=== PATIENT | male | born 1960 | race Caucasian/White ===

== ENCOUNTER 2023-10-29 20:39 | Inpatient (IN) | payer MEDICARE, OTHER, SELFPAY ==
[2023-10-29] VITALS (13 sets, daily range): BP systolic 127–188; BP diastolic 82–109; BMI 35.3
[2023-10-29 17:24] LABS: % Basophils 0.9 % (0-2); % Eosinophils 1.6 % (0-6); % Immature Granulocytes 0.4 % (0-0.5); % Lymphocytes 19.2 % (20.5-51.1); % Monocytes 8.8 % (1.7-9.3); % Neutrophils 69.1 % (42.2-75.2); Absolute Basophils 0.1 10^3/uL (0-0.2); Absolute Eosinophils 0.2 10^3/uL (0-0.7); Absolute Monocytes 0.9 10^3/uL (0.1-0.6); Absolute Neutrophils 7.3 10^3/uL (1.4-6.5); Hematocrit 44.1 % (39.0-52.0); Hemoglobin 15.3 g/dL (13.0-18.0); Mean Corp Hgb Conc. 34.7 g/dL (33.0-37.0); Mean Corpuscular Volume 86.5 fL (80.0-94.0); Mean Platelet Volume 10.3 fL (7.4-10.4); Nucleated Red Blood Cells % 0 % (-); Platelet Count 237 10^3/uL (130-400); Red Cell Dist. Width 13.1 % (11.5-14.5); White Blood Cell Count 10.5 10^3/uL (4.8-10.8)
[2023-10-29 17:38] LABS: ALT (SGPT) 33 U/L (0-50); AST (SGOT) 33 U/L (17-59); Alkaline Phosphatase 71 U/L (38-126); Blood Urea Nitrogen 22 mg/dl (9-20); Calcium 9.6 mg/dl (8.4-10.2); Carbon Dioxide 27 mmol/L (22-30); Chloride 103 mmol/L (98-107); Glucose 99 mg/dl (70-99); Sodium 139 mmol/L (135-145); Total Bilirubin 0.7 mg/dl (0.2-1.3); Total Protein 6.6 g/dl (6.3-8.2); eGFR > 60.00
[2023-10-29 17:51] LABS: Troponin I 0.444 ng/ml
--- NOTE | 2023-10-29 18:13 | ED.GENMED ---
History of Present Illness
General
Chief Complaint: Chest Pain
Source: patient and family
Time Seen by Provider: 10/29/23 17:48
Travel History
Have you had any contact with someone who has COVID-19?: No
Do you have any symptoms of coronavirus? Fever > 100 degrees, chills, cough, shortness of breath, sore throat, loss of taste or smell, muscle aches, or headache?: No
History of Present Illness
History of Present Illness:
This patient is a 63-year-old male who is describing a 'weird irritation' in the center of his chest radiating up to his jaw that is been going on and off for about a week. Came to the ER today because these episodes are more frequent happening up
to 20 times today. Each episode is unprovoked, lasting just a few minutes and then resolving completely. He denies associated exacerbating relieving factors or provoking factors. He denies associated nausea, vomiting, diaphoresis, dyspnea,
abdominal pain, back pain, headache, dizziness. Patient is a pack-a-day smoker and describes a chronic cough which is at baseline. He denies leg edema.
Past History
Past History
ED Past Medical History: Other (Pancreatitis)
ED Past Surgical History: Cholecystectomy
Social History
Tobacco: Smoker
Alcohol: None
Drug: None
Personal:
Living: with family
Employment: Employed
Family History
Family History: Other (Noncontributory)
Phy Exam
Physical Exam
Physical Exam:
GENERAL: Alert , in no apparent distress
EYE: pupils equal and reactive
NECK: Supple, no significant adenopathy.
ENT: o/p clr, mmm.
CARDIAC: Regular rate and rhythm .
LUNGS: Clear breath sounds bilaterally, no acute respiratory distress, no wheezes/rales/rhonchi
ABDOMEN: Soft, without focal tenderness, no r/g, no cvat
NEUROLOGICAL: Alert and oriented, no focal neuro deficits
SKIN: Warm and dry, skin intact.
MUSCULOSKELETAL: No edema, well perfused.
PSYCH: Normal and appropriate interaction.
Scores
Heart Score for Chest Pain Patients
STEMI patient?: No
History: Highly Suspicious
ECG: Significant ST-Depression
Age: >/= 65 years
Risk Factors: 1 or 2 Risk Factors
Troponin: >/= 3 x Normal Limit
Heart Score for Chest Pain Patients: 9
Heart Score Risk: 72.7 % MACE over next 6 weeks
Course
Orders/Labs/Results
Orders:
Orders
10/29/23 Dinner
Cholesterol Lowering
Cholesterol Lowering: Sodium, 2 Gram
10/29/23 16:48
Electrocardiogram (*1) Urgent
Reason for Study: Chest Pain
EKG- Treatment ONCE
10/29/23 17:12
Electrocardiogram (*1) Urgent
Reason for Study: Chest Pain
EKG- Treatment ONCE
10/29/23 17:15
Complete Blood Count/With Diff Urgent
Comprehensive Metabolic Panel Urgent
Troponin I Urgent
10/29/23 18:12
Aspirin 325 mg PO NOW STA
10/29/23 18:24
Nitroglycerin Ointment [Nitro-Bid] 1 inch TOPICAL NOW STA
10/29/23 18:27
Heparin 4,000 units IV NOW STA
10/29/23 18:28
EKG- Treatment ONCE
Nursing to Place Non Medication Order As Directed
Physician Order: PTT 6 hours after initial start of Heparin infusion
Above order entered?: Yes
10/29/23 18:30
Heparin 51213 Units/250 ml 25,000 units in 250 ml IV PER PROTOCOL
Weight to be used for heparin protocol in kilograms (kg):: 106
Protocol:: Cardiac Tx/Acute Coronary
PTT Goal Range to be used:: PTT 73 to 111 seconds
Order type:: Initial
INITIAL Infusion Dose (UNITS/KG/hr) & then follow protocol:: 15 units/kg/hr
Infusion Dose in UNITS/hr & then follow protocol (UNITS/hr):: 1,500
INFUSION RATE in mL/hr & then follow protocol (mL/hr):: 15
PTT less than or equal to 64 seconds:: Increase rate by 200 units/hr (+ 2 mL/hr)
PTT 64.1 to 72.9 seconds:: Increase rate by 100 units/hr (+ 1 mL/hr)
PTT 73 to 111 seconds:: Target Range. No change in rate.
PTT 111.1 to 130.9 seconds:: Decrease rate by 100 units/hr (- 1 mL/hr)
PTT 131 to 199.9 seconds:: HOLD for 1 hr. Then decrease rate by 200 units/hr (- 2 mL/hr)
PTT greater than or equal to 200 seconds:: HOLD for 2 hrs & Notify Provider. Then decrease by 200 units/hr (-
2 mL/hr)
Lab follow-up:: Each change, PTT q6h until 2 consecutive are therapeutic. Then PTT
daily.
Nitroglycerin 100 mg/250 ml [Nitroglycerin Premix] 100 mg in 250 ml IV PER PROTOCOL
Initial dose in mcg/min, then titrate:: 10
Titrate to keep:: Chest Pain Free
Titrate by mcg/min:: 5 mcg/min, may increase by 10 mcg/min if dose > 20 mcg/min
Frequency of titrations (minutes):: every 3-5 minutes
Maximum dose in mcg/min:: 200
Begin to taper infusion when:: Remained at goal for 2hrs
Taper by mcg/min:: 5 mcg/min
Frequency of taper (minutes) if patient maintains goal:: 30
Taper to off?: Yes
If infusion off & no longer maintaining goal:: Contact Provider
10/29/23 18:57
PTT Urgent
Comment: Obtain baseline before beginning heparin infusion if not already collected
10/29/23 19:41
Code Status As Directed
Resuscitation Status: Full Code
Glycohemoglobin (HgbA1c) Routine
Activity As Directed
Activity Level: Bathroom Privileges
INT (Intravenous Needle Therapy) As Directed
Comment: maintain peripheral IV access
Intake/ Output As Directed
Frequency: Per unit guidelines
Vital Signs As Directed
Frequency: q4h
Weight As Directed
Frequency: Once
10/29/23 19:45
Echo 2D MMode Color/Doppler Routine
Reason for Study: chest pain
Electrocardiogram (*1) Q6H
Reason for Study: Chest Pain
Comment: at admission and Q3H for total of 3, to be done with each troponin
Troponin I Q3H
Comment: at admit & Q3H for 3 total including ED draws, obtain ECG with each level
Atorvastatin [Lipitor] 80 mg PO QPM
10/29/23 19:57
Ticagrelor [Brilinta] 180 mg PO ONCE ONE
10/29/23 20:00
Admit Patient As Directed
Co-Sign Provider:
Level of Care: Inpatient admission
Assign to:: IVU
Physician / Group: cbc
Diagnosis: ACS
Patient Condition: Serious
Reason for Hospitalization: ACS
Expected length of stay greater than two midnights?: Yes
ELOS- Estimated Length of Stay in days: 2
I certify the patient meets the requirements for IP care: Yes
Metoprolol Xl [Toprol Xl] 12.5 mg PO BID
10/29/23 20:15
EKG [Electrocardiogram (*1)] Urgent
Reason for Study: Other
Other Reason for Exam: repeat troponin
Troponin I Urgent
10/29/23 21:00
Cardiovascular Evaluation Routine
Comprehensive Metabolic Panel Routine
10/29/23 22:45
Troponin I Q3H
Comment: at admit & Q3H for 3 total including ED draws, obtain ECG with each level
10/30/23 01:45
Electrocardiogram (*1) Q6H
Reason for Study: Chest Pain
Comment: at admission and Q3H for total of 3, to be done with each troponin
Troponin I Q3H
Comment: at admit & Q3H for 3 total including ED draws, obtain ECG with each level
10/30/23 Breakfast
NPO
Allow oral meds: Yes
Allow clear liquids: Sips of Clears
Complete Blood Count/No Diff IN AM
10/30/23 07:45
Electrocardiogram (*1) Q6H
Reason for Study: Chest Pain
Comment: at admission and Q3H for total of 3, to be done with each troponin
10/30/23 08:00
Ticagrelor [Brilinta] 90 mg PO BID
ECG as needed As Directed
ECG as needed for:: Chest Pain
Comment: with chest pain x 2 episodes.
Abnormal Lab Results
10/29/23
17:15
Absolute Neuts (auto) 7.3 H 10^3/uL
(1.4-6.5)
Absolute Monos (auto) 0.9 H 10^3/uL
(0.1-0.6)
Lymphocytes % 19.2 L %
(20.5-51.1)
BUN 22 H mg/dl
(9-20)
Troponin I 0.444 H* ng/ml
10/29/23 17:15
10/29/23 17:15
Vital Signs
Initial and Last Documented VS:
Initial Vital Signs
Temp Pulse Resp BP Pulse Ox
98.9 F 87 20 188/106 96
10/29/23 17:01 10/29/23 17:01 10/29/23 17:01 10/29/23 17:01 10/29/23 17:01
Last Documented Vital Signs
Temp Pulse Resp BP Pulse Ox
98.9 F 77 16 144/90 96
10/29/23 17:01 10/29/23 19:30 10/29/23 19:30 10/29/23 19:30 10/29/23 19:30
*Critical Care Note
Total Time (30-74mins, 75-104mins- exclusive of procedures): 30
Update Note
Update Note:
Patient presents to the Emergency Department with episodes of chest pain____
Number and Complexity of Problems Addressed at the Encounter
� Chronic conditions affecting care:
� Acute Exacerbation and/or Progression of Chronic Illness:
� Differential Diagnosis includes:but not limted to pericarditis, acs, stemi, pna, gerd, etc.
Amount and/or Complexity of Data to be Reviewed and Analyzed
� I performed an independent evaluation of and my interpretation is:
EKG: Read by me, normal sinus rhythm, T wave flattening and very subtle ST depressions particularly laterally, no ST RAYSA
CT:
Xrays:
Laboratory Studies: Troponin noted at 0.44
Other:
� Review of other/old records reveals: Patient admitted for pancreatitis, I reviewed d/c summary.
� Clinical information was obtained by an independent historian: Son who is at bedside
� Prescriptions/Medications Considered but not given:
� Further testing considered but not performed:
Risk of Complications and/or Morbidity or Mortality of Patient Management
� Social determinants of health affecting care:
� Discussion with other providers (PCP, Hospitalists, Consultants, etc):
� Escalation of care including admission/observation vs risk of discharge considered: 6:15 PM troponin ECG noted, patient pain-free at this time however did have an episode of pain within the last 15 minutes just lasting a few
minutes. Will discuss with cardiology. Aspirin ordered. 2009 case d/w moorad at approx 625pm, agrees with plan, add nitro gtt, will see in ED. He has seen in ED, admitted. P t pain free.
ED Attending Note
-
Portions of this chart may have been created with voice recognition software.� Occasional wrong word or��sound alike� substitutions may have occurred due to the inherent limitations of voice recognition software.
Discharge Plan
Departure
Patient Disposition: Admit
Date of Disposition: 10/29/23
Time of Disposition: 18:27
Admit to doctor: rufus
Presentation/result/management discussed w/ accepting MD/DO: moorad
Condition: Good
Discharge Problem:
angina
Interventions
Interventions:
*Risk Screen - Suicide Last Done: 10/29/23 17:58
*General Assessment Last Done: 10/29/23 17:57
*Neglect/Abuse Screening Last Done: 10/29/23 17:58
ED- Fall Risk Assessment Last Done: 10/29/23 18:01
*ED COVID-19 Vaccine History Last Done: 10/29/23 17:57
ED- Cardiac Assessment Last Done: 10/29/23 17:59
[2023-10-29] MEDS: ASPIRIN 325 MG PO (18:22)
[2023-10-29] MEDS: HEPARIN 4000 UNITS IV (18:50)
[2023-10-29] MEDS: HEPARIN 25000 UNITS/250 ML IV (18:50)
[2023-10-29] MEDS: NITROGLYCERIN PREMIX 250 IV (18:52)
[2023-10-29 19:28] LABS: APTT 27.9 Sec (23.4-35.0)
--- NOTE | 2023-10-29 19:32 | HPS.HSE ---
Family Physician
-
Family Physician: Sotero Eng
Chief Complaint
-
Intermittent upper chest discomfort
History of Present Illness
This is a 63-year-old with no significant past medical history. He does not maintain regular medical care.
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
He came to the emergency room complaining of 1 week of intermittent midsternal upper chest discomfort that he describes as a burning or irritation, there is some radiation to his throat and into his lower jaw. The symptom comes several times per
day and lasts for 5 to 10 minutes and then subsides. It leaves him with an overall feeling of fatigue. That has been present for a week and is occurring more frequently, although nothing seems to make it better or worse.
He takes ibuprofen daily for his arthritis. Otherwise no medications.
Family history is positive for CAD in his brother, and parents.
Complete review of systems is positive for arthritic complaints but otherwise negative
Medical History
Past Medical History
Past Medical History: Reports Other (As noted in the HPI)
Past Surgical History: Reports Orthopedic (r knee surgery)
Social History
Tobacco: Smoker
Alcohol: Occasional
Drug: None
Employment: Employed
Family History
Family History: CAD
Allergies / Home Medications
Allergies reflects when Allergies were last updated in [employer].
Home Medications with original date entered in [employer]
Allergy/Medication List:
nkma
Review of Systems
-
History Source: Patient
Constitutional: Reports No Symptoms
EENT: Reports No Symptoms
Respiratory: Reports No Symptoms
Cardiac: Reports See HPI
Abdomen/GI: Reports No Symptoms
: Reports No Symptoms
Musculoskeletal: Reports See HPI
Skin: Reports No Symptoms
Neurological: Reports No Symptoms
Endocrine: Reports No Symptoms
Hematologic/Lymphatic: Reports No Symptoms
Psych: Reports No Symptoms
Physical Exam
Vital Signs
Vital Signs
Temp Pulse Resp BP Pulse Ox
98.9 F 82 19 144/101 95
10/29/23 17:01 10/29/23 19:00 10/29/23 19:00 10/29/23 19:00 10/29/23 19:00
Physical Exam
General: Well Developed and Well Nourished
Respiratory: Clear and Wheezes (mild)
Cardiac: S1/S2, Regular Rhythm and Other (Palpable but slightly diminished pulses in the left leg)
GI: Soft and Non Tender
Musculoskeletal: No Clubbing and Cyanosis
Skin: Warm and Dry
Neuro: Awake and Alert
Laboratory Results
-
10/29/23 17:15
10/29/23 17:15
Laboratory Results
APTT 27.9 Sec (23.4-35.0) 10/29/23 18:57
Total Bilirubin 0.7 mg/dl (0.2-1.3) 10/29/23 17:15
AST 33 U/L (17-59) 10/29/23 17:15
ALT 33 U/L (0-50) 10/29/23 17:15
Alkaline Phosphatase 71 U/L (38-126) 10/29/23 17:15
Troponin I 0.444 ng/ml H* 10/29/23 17:15
Data Reviewed
-
Diagnostic Radiology: Image Personally Visualized and interpreted
Medical Tests (Nuc Med, Echo, EKG etc): Report Reviewed by me
Lab Data: Labs Reviewed by me
Impression/Plan
-
IMPRESSION: Chest pain syndrome. I suspect this is new onset angina, with a crescendo pattern.
At this time his EKG is negative for ST IL and demonstrates mild nonspecific ST changes. His initial troponin is 0.44.
He has been treated with intravenous heparin and intravenous nitroglycerin in the emergency room and his episodes of chest discomfort have resolved. He has been given aspirin.
Plan is to admit him to the hospital and continue the intravenous nitroglycerin and heparin. Add an additional antiplatelet. Add beta-sanam if needed for blood pressure. Check lipids. Plan to proceed with cardiac catheterization/coronary
angiography and probable intervention tomorrow.
I have reviewed this impression and plan in detail with the patient, and his son who is at his bedside. They understand and agree.
PLAN:
[2023-10-29] MEDS: BRILINTA 180 MG PO (21:17)
[2023-10-29 22:12] LABS: Troponin I 0.856 ng/ml
[2023-10-30] VITALS (24 sets, daily range): BP systolic 94–166; BP diastolic 55–143; PULSE 2–82; BMI 33.5; BMI 33.6
--- NOTE | 2023-10-30 00:30 | PTCARENOTE ---
Received patient via stretcher accompanied by ED RN. Patient ambulated self from stretcher to bed without difficulty. Nursing assessment completed and as documented. Patient on nitro and heparin gtt, titrating per protocol, see worklist for
documentation. Call barahona in place, oriented to room/facility, VSS, care ongoing.
[2023-10-30] MEDS: LIPITOR PO (00:42)
[2023-10-30] MEDS: TOPROL XL PO (00:42)
[2023-10-30 02:35] LABS: APTT 78.3 Sec (23.4-35.0)
[2023-10-30 02:41] LABS: Hemoglobin 13.7 g/dL (13.0-18.0); Mean Corp Hgb Conc. 36.1 g/dL (33.0-37.0); Mean Corpuscular Volume 83.2 fL (80.0-94.0); Mean Platelet Volume 10.4 fL (7.4-10.4); Platelet Count 225 10^3/uL (130-400); Red Blood Cell Count 4.57 10^6/uL (4.70-6.10); Red Cell Dist. Width 13.2 % (11.5-14.5); White Blood Cell Count 9.2 10^3/uL (4.8-10.8)
[2023-10-30 03:08] LABS: HDL Cholesterol 32 mg/dl; LDL Cholesterol, Calculated 90 mg/dl; Total Cholesterol 166 mg/dl (50-199); Triglyceride 223 mg/dl (10-149); Very Low Density Lipoprotein 44 mg/dl (0-30)
[2023-10-30 03:16] LABS: ALT (SGPT) 29 U/L (0-50); AST (SGOT) 39 U/L (17-59); Albumin 3.3 g/dl (3.5-5.0); Alkaline Phosphatase 69 U/L (38-126); Blood Urea Nitrogen 24 mg/dl (9-20); Calcium 8.9 mg/dl (8.4-10.2); Carbon Dioxide 26 mmol/L (22-30); Chloride 106 mmol/L (98-107); Estimated Creatinine Clearance 97 ml/min; Glucose 96 mg/dl (70-99); Potassium 3.6 mmol/L (3.5-5.1); Sodium 137 mmol/L (135-145); Total Bilirubin 0.9 mg/dl (0.2-1.3); Total Protein 5.7 g/dl (6.3-8.2); eGFR > 60.00
[2023-10-30] MEDS: LIPITOR 80 MG PO ×2 (03:28→17:36)
[2023-10-30] MEDS: BRILINTA 90 MG PO ×2 (08:38→20:16)
[2023-10-30] MEDS: LOW STRENGTH ASPIRIN 81 MG PO (08:38)
[2023-10-30] MEDS: TOPROL XL 12.5 MG PO ×2 (08:38→20:16)
--- NOTE | 2023-10-30 08:51 | W.PN.CD ---
Today's Communication / Plan
-
cardiac cath today
renew IV heparin and nitro for now
Impression / Plan
-
-
ACS/NonSTMI
he is pain free on IV nitro and iv heparin, w asa and brilinta
Peak Trop is 1.8 and [address] mild inferior ST changes - suspect LCX or RA culprit
For cardiac cath today - patient understands and agrees -reviewed w Dr Tse/Int Cards
Smoker
he declines need for nicotine patch or med at this time
he is aware of need to stop
Physical Exam
Vital Signs/Labs
Vital Signs
Temp Pulse Resp BP Pulse Ox
98.1 F 82 16 133/89 95
10/30/23 07:00 10/30/23 08:00 10/30/23 07:00 10/30/23 07:00 10/30/23 07:00
10/29/23 10/30/23 10/31/23
06:59 06:59 06:59
Actual Weight 226 lb 10.163 oz
10/30/23 02:15
10/30/23 02:15
APTT 78.3 Sec (23.4-35.0) H 10/30/23 02:14
Triglycerides 223 mg/dl (10-149) H 10/30/23 02:15
LDL Cholesterol, Calc 90 mg/dl 10/30/23 02:15
VLDL Cholesterol, Calc 44 mg/dl (0-30) H 10/30/23 02:15
HDL Cholesterol 32 mg/dl 10/30/23 02:15
LAB Results
10/29/23 10/29/23 10/29/23
17:15 19:45 21:19
Troponin I 0.444 H* Cancelled 0.856 H* D
10/29/23 10/30/23
22:45 02:15
Troponin I Cancelled 1.800 H* D
Physical Exam
Constitutional: Comfortable
Cardiovascular: Rhythm & rate is regular and Pedal edema is absent
Respiratory: Respiratory effort normal and Lungs clear to auscul.
Data Reviewed
-
Date of Service: October 30, 2023
EKG: Tracing Personally Visualized and interpreted
Labs: Labs Reviewed by me
--- NOTE | 2023-10-30 09:02 | PTCARENOTE ---
Assumed care of pt fom night RN. Pt received awake and alert, Ox3. VSs, CM shows NSR 80's, POX 95% on RA. Pt denies any pain or discomfort. Heparin and NTG drips stopped upon transfer to [facility]. Pt transported to [facility] by [facility] RN's
[2023-10-30 09:26] LABS: ACT-LR - POC 242 Seconds (116-155)
[2023-10-30 09:34] LABS: Glycohemoglobin (HgbA1c) 5.9 % (4.0-5.6)
--- NOTE | 2023-10-30 09:57 | ITS.CL.CATH ---
Facility Mechanic - Catheterization
Cardiac Catheterization
Procedure Report:
CARDIAC CATHETERIZATION REPORT
Date of Procedure: 10/30/2023
Referring: Dmitry Del Real MD
Indication: ACS/non-STEMI (TNI 3 and rising)
HEMODYNAMIC DATA
AO: 108/67
LV: 108/20
LEFT VENTRICULOGRAPHY: Very mild mid inferior hypokinesis with overall preserved systolic function with EF 59%
CORONARY ANGIOGRAPHY
Dominance: Right
Left Main: Normal
LAD: Mild luminal irregularities in the LAD system
Circumflex: 80% mid circumflex stenosis distal to the takeoff of a tiny OM1 and proximal to the origin of a medium to large bifurcating OM 2. The lesion has the appearance of a previous complex plaque rupture. OM 3 is a large bifurcating vessel
with 90% mid stenosis well proximal to the bifurcation. The circumflex terminates with two small left posterolateral branches
RCA: The RCA is dominant with 95% mid stenosis. There is BAKARI grade III flow distal to the lesion. The distal RCA gives rise to the PDA and a single moderate to large posterolateral branch
Angioplasty: At the conclusion of the diagnostic study we proceeded with RCA intervention. It was not possible to tell which vessel was the culprit vessel. I was concerned that the RCA lesion may not be able to be wired. If we were unable to wire
the RCA lesion then we would stop and discuss CABG. For this reason we opted to treat the RCA first. Heparin was used for anticoagulation. A 6 Polish JR4 guide was used. A whisper wire was successfully passed into the distal posterolateral
branch without difficulty. Angioplasty with a 2.5 x 15 trek along the length of the diseased segment was accomplished with serial inflations. We then placed a 3.5 x 33 Xience mike point LESLI which was deployed at 15 atmospheres and postdilated with
a 3.5 NC trek to 17 jakub. The final angiographic result was outstanding. There was no residual stenosis with preservation of normal antegrade flow.
Closure Device: None-the procedure was performed via the right radial artery. The Vamshi's test was normal prior to the procedure.
Radiation (mGy): 459
DAP (cm2.Gy): 30.9
Fluoroscopy time: 6.8 minutes
CONCLUSIONS
1: ACS/non-STEMI
2: Mildly elevated LVEDP
3. Very mild inferior hypokinesis with EF 59%
4. 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
5. Successful stenting of 95% mid RCA lesion using 3.5 x 33 Xience LESLI with outstanding result
6. The patient will return possibly within 24 hours for circumflex PCI to include the mid circumflex and OM 3. Same setting multivessel PCI was not felt to be advisable as he had difficulty keeping still on the table and will need 2 lesions
treated in the circumflex artery
Copy to: Dmitry Del Real MD, Sotero Eng DO
Redd Tse MD, [facility], [facility]
--- NOTE | 2023-10-30 10:19 | PTCARENOTE ---
Assumed care of pt upon tsf from CCL post stent placement in RCA. Pt arrives awake and alert, Ox3, CLAY, VSS. CM shows NSR, POX 95% on RA. Right radial band intact. will continue to monitor closely.
[2023-10-30] MEDS: NSS 1000 IV (10:26)
--- NOTE | 2023-10-30 12:15 | CM ---
Addendum entered by Renée Tee 10/30/23 15:01:
Reviewed co-pay for Olive witnh Mr. Staples. He feels the cost is prohibitive.
Original Note:
Reviewed chart. Met with Mr. Staples to review discharge plans. He states prior to admission he resides with his spouse in a one stroy home with six steps to enter. He states prior to admission he was independent with ambulation and adls. He states
he does not have any DME in the home. He states he has a prescription plan with [employer] and uses [facility]. Telephone call to [employer] to check on co-pay for Melviilinta. His first script would be $362.99 because he still has a
deductible that has to be met. After that he would cover 50% of the cost of the medications, est. cost $222.00 a month. Will review with Mr. Staples. Medical work-up in progress. The discharge plan is to return home with his spouse when medically
stable.
[2023-10-30 14:31] LABS: ACT-LR - POC > 397 Seconds (116-155)
--- NOTE | 2023-10-30 14:43 | PTCARENOTE ---
Pt continues to c/o inability to catch his breath, NTG doesn't seem to help, and POX remains 97-99%. Radhika Cross made aware.
[2023-10-30] MEDS: MORPHINE SULFATE 1 MG IV (15:45)
--- NOTE | 2023-10-30 15:49 | PTCARENOTE ---
TR band off. Morphine 1 mg given IV as ordered for anxiety/SOB.
[2023-10-30 19:38] LABS: APTT 30.3 Sec (23.4-35.0)
[2023-10-30] MEDS: HEPARIN 25000 UNITS/250 ML IV (20:19)
[2023-10-31] VITALS (23 sets, daily range): BP systolic 99–160; BP diastolic 60–105; BMI 33.8
[2023-10-31 02:53] LABS: Hematocrit 35.3 % (39.0-52.0); Hemoglobin 12.6 g/dL (13.0-18.0); Mean Corp Hgb Conc. 35.7 g/dL (33.0-37.0); Mean Corpuscular Hgb 30.1 pg (27.0-31.0); Mean Corpuscular Volume 84.4 fL (80.0-94.0); Mean Platelet Volume 11.1 fL (7.4-10.4); Platelet Count 196 10^3/uL (130-400); Red Blood Cell Count 4.18 10^6/uL (4.70-6.10); Red Cell Dist. Width 13.2 % (11.5-14.5); White Blood Cell Count 12.2 10^3/uL (4.8-10.8)
[2023-10-31 03:03] LABS: Blood Urea Nitrogen 24 mg/dl (9-20); Calcium 8.6 mg/dl (8.4-10.2); Carbon Dioxide 23 mmol/L (22-30); Chloride 107 mmol/L (98-107); Estimated Creatinine Clearance 87 ml/min; Glucose 100 mg/dl (70-99); Sodium 134 mmol/L (135-145); eGFR > 60.00
[2023-10-31 03:04] LABS: APTT 53.9 Sec (23.4-35.0)
[2023-10-31] MEDS: MORPHINE SULFATE 1 MG IV ×2 (03:38→23:09)
[2023-10-31] MEDS: TOPROL XL 12.5 MG PO ×2 (08:39→19:55)
[2023-10-31] MEDS: LOW STRENGTH ASPIRIN 81 MG PO (08:39)
[2023-10-31] MEDS: FLUSH (NSS) 2 FLUSH IV (08:42)
[2023-10-31] MEDS: PLAVIX 600 MG PO (08:42)
[2023-10-31] MEDS: ATIVAN 0.5 MG PO (09:20)
[2023-10-31 09:44] LABS: APTT 72.9 Sec (23.4-35.0)
[2023-10-31 10:19] LABS: ACT-LR - POC 351 Seconds (116-155)
[2023-10-31 10:39] LABS: ACT-LR - POC 327 Seconds (116-155)
--- NOTE | 2023-10-31 10:43 | ITS.CL.ANGIO ---
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
Angioplasty
Procedure Report:
CARDIAC CATHETERIZATION REPORT
Date of Procedure: 10/31/2023
Referring: Redd Tse M.D.
INDICATION: Staged PCI for non-ST elevation myocardial infarction.
PROCEDURE:
1. Left heart catheterization.
2. Left-sided coronary angiography.
3. Successful PCI of the 90% OM 3 lesion.
4. Successful PCI of the ulcerated, 80% mid circumflex lesion.
ACCESS:
6 [place] right radial artery.
CATHETERS:
1. 6 [place] EBU 3.75 guide.
2. 6 [place] angled pigtail.
HEMODYNAMIC DATA
Weight (kg): 103.4
AO (s/d/x, mmHg): 151/87/109
LV (s/x mmHg): 151/35
LEFT VENTRICULOGRAPHY: Not performed.
CORONARY ANGIOGRAPHY
Dominance: Right.
Left Main: Normal size, bifurcating vessel. There is no coronary artery disease.
LAD: Normal size vessel giving rise to 3 diagonals. There are minor luminal irregularities.
Ramus: Congenitally absent.
Circumflex: Large size, nondominant vessel giving rise to 3 obtuse marginals. There is an ulcerated, complex 80% plaque in the mid circumflex proximal to a trifurcation of OM 2, OM 3 and the [place] AV groove circumflex. There are minor luminal
irregularities and OM 2. OM 3 is a substantial vessel that bifurcates into 2 daughter branches that supply the majority of the inferolateral wall. There is a 90% lesion in the proximal portion of OM 2.
RCA: Not injected. Known to be a normal size, dominant vessel status post recent PCI to a 95% mid vessel stenosis.
INTERVENTION(S)
1. Successful PCI of the 90% OM 3 lesion (Xience Skypoint 2.5 x 23 LESLI, postdilated with a 2.5 NC balloon) with reduction in stenosis to 0%, maintaining BAKARI-3 flow.
2. Successful PCI of the ulcerated, 80% mid circumflex lesion (Xience Skypoint 3.5 x 18 LESLI, postdilated with a 4.0 NC balloon) with reduction in stenosis to 0%, maintaining BAKARI-3 flow.
3. Intravenous administration of furosemide 40 mg.
Narrative:
The decision was made to proceed with percutaneous coronary intervention. A 6Fr EBU 3.75 guiding catheter was advanced to the aortic root and seated in the left main coronary artery. Additional heparin was given and a Power Turn Flex wire was
advanced into the distal portion of OM 3. The 90% OM 3 lesion was predilated with a 2.0 x 12 semi-compliant balloon to 12 jakub. The 80% mid circumflex lesion was also predilated with the 2.0 x 12 semicompliant balloon. The semi-compliant balloon
was removed and a Xience Skypoint 2.5 x 23 drug-eluting stent was advanced. The stent was deployed at 9 atmospheres. The stent balloon was removed. A 2.5 x 15 noncompliant balloon was advanced into the stent and the stent was postdilated to 12
atmospheres in the distal aspect and 14 jakub in the proximal aspect. The 80% mid circumflex lesion was predilated again with the 2.5 x 15 NC balloon.
We then turned our attention to the mid circumflex lesion. The 2.5 x 15 non-compliant balloon was removed and a Xience Skypoint 3.5 x 18 drug-eluting stent was advanced. Meticulous care was taken while positioning the stent, ensuring that the
entire lesion was covered but avoiding the circumflex trifurcation of OM 2, OM 3 and the AV groove circumflex. The stent was deployed at 12 atmospheres. The stent balloon was removed. A 4.0 x 12 noncompliant balloon was advanced into the stent and
the distal stent was postdilated to 12 atmospheres. The proximal stent was postdilated to 14 jakub. The noncompliant balloon was removed. Angiography was performed in orthogonal views, confirming good stent expansion and an excellent angiographic
result. The coronary wire was withdrawn and the guide was disengaged from the artery.
The catheter was exchanged for a 6 [place] angled pigtail catheter over a standard J-wire. The pigtail catheter was prolapsed into the left ventricle and a left heart catheterization was performed. The LVEDP was observed to be severely elevated at
35 mmHg. Pullback revealed no evidence of aortic valve stenosis. The patient was given furosemide 40 mg IV.
The catheter was removed over a standard J-wire.
Closure Device: Vascular band.
Radiation (mGy): 571.98
DAP (cm2.Gy): 30.1078
Fluoroscopy time (minutes): 8.7
Sedation time (minutes): 44
CONCLUSIONS
1. Right dominant circulation with recently treated 90% mid RCA lesion (not visualized today) with residual left-sided disease including a 90% lesion in the third obtuse marginal status post successful PCI (Xience Skypoint 2.5 x 23 LESLI, postdilated
with a 2.5 NC balloon) and an ulcerated, 80% lesion in the mid circumflex, proximal to the circumflex trifurcation of OM 2, OM 3 and the AV groove circumflex, status post accessible PCI (Xience Skypoint 3.5 x 18 LESLI, postdilated with a 4.0 NC
balloon) with reduction in both stenoses to 0%, maintaining BAKARI-3 flow.
2. Severely elevated filling pressures (LVEDP = 35 mmHg at 103.4 kg).
RECOMMENDATIONS:
1. Expectant management after cardiac catheterization via right radial approach.
2. Limited weight bearing on the right wrist for one week.
3. Dual antiplatelet therapy with aspirin and clopidogrel for at least 12 months, followed by aspirin indefinitely.
4. Aggressive diuresis given severely elevated filling pressures.
5. Guideline directed medical therapy as hemodynamics will tolerate.
6. Repeat echocardiogram in 90 days.
7. Referral to cardiac rehab.
Copy to: Redd Tse M.D., Sotero Eng D.O., Dmitry Del Real M.D.
Ruddy Machuca DO, FACC, FACP
--- NOTE | 2023-10-31 11:11 | PTCARENOTE ---
Received the patient from the laborer wharf in his bed. The patient is aaox3, vss, 95% on RA. He has no complaints of pain. His right R-band is in place with a positive right radial pulse noted. A Junctional rhythm is noted on the monitor with a HR of
54. I instructed the patient on his activity restrictions and expected oob time. His call barahona is within reach.
[2023-10-31] MEDS: LIPITOR 80 MG PO (17:46)
[2023-10-31] MEDS: TYLENOL 650 MG PO (17:48)
--- NOTE | 2023-10-31 17:51 | PTCARENOTE ---
The patient complained of chest discomfort. He rated it a 5/10 on scale. Tylenol given as per ordered.
--- NOTE | 2023-10-31 23:21 | PTCARENOTE ---
Pt rec'd at shift change in bed c/o pain in left hip (chronic) problem. medicated with Tylenol. Junctional 50-60's on telemetry. Coarse breath sounds throughout. Right radial site with DDI. At Hs Pt called nursing to room c/o having pain with
breathing. Pt states he's been feeling this way for about an hour. no c/o cp. Pt stated hurts when breathing not necessarily a deep breath. sat on r/a 94% on R/a. PA notified of pt's complaints down to see pt. ecg ordered and completed. no changes
per PA. Morphine 1 mg given. PA also ordered mn tx which pt refused when seen by resp therapist. o2 at 2 lit n/c placed for comfort sat 97%.
[2023-11-01] VITALS (9 sets, daily range): BP systolic 110–165; BP diastolic 70–90
[2023-11-01] MEDS: ROXICODONE 10 MG PO ×3 (01:14→13:19)
--- NOTE | 2023-11-01 01:17 | PTCARENOTE ---
Pt called nursing to room stating he felt relief from morphine earlier down to 3 out of 10 however Pain now returned 8 out of 10. center of chest. Pt states ' When I take a breath it feels like a stabbing pain',non radiating. Pt given Roxicodone 10
mg. call barahona within reach. o2 continued at 2 lit n/c.
--- NOTE | 2023-11-01 03:42 | W.PN.UPDATE ---
Update Note
Progress Note Update
-@ approx 11 am, pt c/o 02/15 pleuritic pain, worse with taking deep breaths, no alleviating factors. Pt says it's not feeling better with sitting up and doesn't feel like reflux pain. No significant murmur or rub on exam, lungs with diminished
sounds throughout with mild wheeze. BP 137/68, pOx 94% on RA. ECG with sinus romy 57 bpm, PAC, no acute STTW change, no obvious signs of pericarditis. S/p recent FL with RCA and Circ/OM stents.
-got temporary relief with iv Morphine and Roxicodone, started O2 for comfort, ordered nebs (refused). Pt had some nausea with Morphine. Gave 1 dose iv Toradol for recurrent discomfort. Can consider Colchicine if pericarditis suspected.
Of note, around 3am pt was getting routine am ECG when he had a brief episode of a-fib, then converted spontaneously to slow junctional rhythm and had 3.6 sec pause.
-will hold Toprol for now and discuss with Cardiology in am
--- NOTE | 2023-11-01 03:44 | PTCARENOTE ---
Pt called nursing to room stating he fell asleep after getting Roxicodone but awoken to same pain with breathing. vs taken. 12 lead ecg competed. just after ecg was printed pt's tele monitor showed rapid afib with rates 130's then a 3.66 second
pause. pt went right back into junctional rhythm afterwards. Pt denied feeling lightheaded. Toradol dose ordered awaiting pharmacy to acknowledge. o2 at 2 lit n/c continued.
[2023-11-01 03:55] LABS: Hematocrit 39.1 % (39.0-52.0); Hemoglobin 14.1 g/dL (13.0-18.0); Mean Corp Hgb Conc. 36.1 g/dL (33.0-37.0); Mean Corpuscular Hgb 30.3 pg (27.0-31.0); Mean Corpuscular Volume 84.1 fL (80.0-94.0); Mean Platelet Volume 10.9 fL (7.4-10.4); Platelet Count 200 10^3/uL (130-400); Red Blood Cell Count 4.65 10^6/uL (4.70-6.10); Red Cell Dist. Width 13.4 % (11.5-14.5); White Blood Cell Count 13.8 10^3/uL (4.8-10.8)
[2023-11-01] MEDS: TORADOL 15 MG IV (03:59)
[2023-11-01 04:16] LABS: Blood Urea Nitrogen 24 mg/dl (9-20); Calcium 8.9 mg/dl (8.4-10.2); Carbon Dioxide 27 mmol/L (22-30); Chloride 102 mmol/L (98-107); Estimated Creatinine Clearance 87 ml/min; Glucose 114 mg/dl (70-99); Potassium 3.9 mmol/L (3.5-5.1); Sodium 137 mmol/L (135-145); eGFR > 60.00
[2023-11-01] MEDS: LOW STRENGTH ASPIRIN 81 MG PO (08:07)
[2023-11-01] MEDS: PLAVIX 75 MG PO (08:07)
--- NOTE | 2023-11-01 08:41 | PTCARENOTE ---
Assumed care of pt from night RN. Pt received awake and alert, Ox3. VSs, CM shows NSR with Junctional and pause, POX 97% on 2 liters.. Right radial site CDI with good CMS. Pt c/o pain 8/10 in left chest with inspiration. Roxicodone 10 mg given
po as per NOV. Will wean O2 if possible. Woll continue to monitor pt closely.
--- NOTE | 2023-11-01 10:38 | W.PN.CD ---
Today's Communication / Plan
-
IV diuresis
Hold BB
Watch tele
Check trop this afternoon and in AM
Follow BMP
Echo Friday or sooner if needed
High risk
Multiple active problems
More than 55 min spent in care of this patient today
Impression / Plan
-
-
Elevated LVEDP
- Suspect acute diastolic dysfunction from acute DC
- Anticipate echo just prior to discharge or sooner if clinical cours warrants to look for MR or other causes of elevated LVEDP
- Aggressive IV diuresis
AFib, brief
- May be reversible
- Will not yet commit to OAT as it was very brief
Bradycardia
- junctional or ectopic atrial bradycardia currently
- 3.6 sec pause at termination of AFib
- May be reversible in setting of recent IMI
- Hold BB
- Monitor
ACS/NonSTMI
- S/p RCA PCI
- S/p LCx and OM PCI
Smoker, smoking cessation
Lipids
- Goal LDL less than 55 => Statin
Subjective:
Dyspnea, atypical chest pain
Physical Exam
Vital Signs/Labs
Vital Signs
Temp Pulse Resp BP Pulse Ox
98.3 F 52 16 134/73 97
11/01/23 08:05 11/01/23 08:05 11/01/23 08:05 11/01/23 08:04 11/01/23 08:27
10/31/23 11/01/23 11/02/23
06:59 06:59 06:59
Actual Weight 103.7 kg
11/01/23 03:23
11/01/23 03:23
APTT 72.9 Sec (23.4-35.0) H 10/31/23 09:05
Triglycerides 223 mg/dl (10-149) H 10/30/23 02:15
LDL Cholesterol, Calc 90 mg/dl 10/30/23 02:15
VLDL Cholesterol, Calc 44 mg/dl (0-30) H 10/30/23 02:15
HDL Cholesterol 32 mg/dl 10/30/23 02:15
LAB Results
10/29/23 10/29/23 10/29/23
17:15 19:45 21:19
Troponin I 0.444 H* Cancelled 0.856 H* D
10/29/23 10/30/23 10/30/23
22:45 02:15 09:20
Troponin I Cancelled 1.800 H* D 2.110 H*
10/30/23 10/31/23 10/31/23
17:06 02:04 09:05
Troponin I 2.390 H* 3.060 H* 2.880 H*
10/31/23
18:00
Troponin I Cancelled
Physical Exam
Constitutional: No acute distress
Cardiovascular: Rhythm & rate is regular, Pedal edema is absent, JVD present and S1S2 is normal
Respiratory: Respiratory effort normal and Crackles Present
GI: Soft
Neuro/Psych: AO x 3
Data Reviewed
-
Date of Service: November 01, 2023
[2023-11-01] MEDS: LASIX 40 MG IV ×2 (10:48→15:53)
--- NOTE | 2023-11-01 10:52 | PTCARENOTE ---
Lasix 40 mg given IV as ordered.
[2023-11-01] MEDS: LIPITOR 80 MG PO (17:28)
[2023-11-01 17:45] LABS: Blood Urea Nitrogen 27 mg/dl (9-20); Calcium 9.3 mg/dl (8.4-10.2); Carbon Dioxide 27 mmol/L (22-30); Chloride 98 mmol/L (98-107); Estimated Creatinine Clearance 67 ml/min; Glucose 113 mg/dl (70-99); Potassium 3.8 mmol/L (3.5-5.1); Sodium 136 mmol/L (135-145); eGFR > 60.00
--- NOTE | 2023-11-01 18:16 | PTCARENOTE ---
Pt yelling on phone at family member, HR jumped to 180's AF. Phone call disconnected, HR continues to be 120-`140's AF, couple 1 second pauses noted, but back up to 140's. B/P 156/90, pt placed on 2 liters POX 94% Stat EKG sent to Dr. Parks,
awaiting further orders.
--- NOTE | 2023-11-01 19:50 | PTCARENOTE ---
Pt rec'd at change of shift awake,alert stating he's tired and wants to sleep. afib teaching given. Pt's ht rate 130's with occ short pauses/ romy then right back into afib. O2 at 2lit n/c 94%. emotional support given to pt after he voiced that he
had been very agitated earlier this evening while on a personal phone call. Pt encouraged to try and rest. other than pt's chronic left hip pain pt did not c/o sob or chest discomfort while lying flat. call barahona within reach.
[2023-11-01] MEDS: ROXICODONE 5 MG PO ×2 (21:22→23:25)
--- NOTE | 2023-11-01 21:36 | PTCARENOTE ---
Pt with c/o pain right side of chest without c/o sob. Also with left hip pain. Roxicodone given.
pt continues in afib with freq long pauses, largest thus far this shift 4.3 seconds. Pt strongly encouraged to leave o2 at 2 lit n/c in place. further afib teaching given.
--- NOTE | 2023-11-01 23:30 | PTCARENOTE ---
Pt with c/o pain 8 out 10 right chest. sitting on side of bed with arm draped across bedside table in elevated position. Pt states it feels like it brings some discomfort off his chest. o2 continued at 2 lit. Spoke with Cardiac SUPER[employer] additional dose of
Roxicodone 5 mg given. Pt instructed to remain on bedrest secondary to pauses.
[2023-11-02 01:39] VITALS: BP 121/82
--- NOTE | 2023-11-02 01:53 | PTCARENOTE ---
Pt continues with freq long pauses 4-5 sec long. pt asymptomatic. conversing with nursing denies dizziness when pauses occur. b/p stable at 121/82. am labs sent
[2023-11-02 01:54] LABS: Hematocrit 41.1 % (39.0-52.0); Hemoglobin 14.7 g/dL (13.0-18.0); Mean Corp Hgb Conc. 35.8 g/dL (33.0-37.0); Mean Corpuscular Volume 83.9 fL (80.0-94.0); Mean Platelet Volume 10.7 fL (7.4-10.4); Platelet Count 200 10^3/uL (130-400); Red Cell Dist. Width 13.1 % (11.5-14.5); White Blood Cell Count 15.8 10^3/uL (4.8-10.8)
[2023-11-02 02:35] LABS: Blood Urea Nitrogen 33 mg/dl (9-20); Calcium 9.2 mg/dl (8.4-10.2); Carbon Dioxide 28 mmol/L (22-30); Chloride 95 mmol/L (98-107); Estimated Creatinine Clearance 73 ml/min; Glucose 117 mg/dl (70-99); Potassium 3.9 mmol/L (3.5-5.1); Sodium 136 mmol/L (135-145); eGFR > 60.00
[2023-11-02 05:46] VITALS: BMI 32.3
--- NOTE | 2023-11-02 05:58 | PTCARENOTE ---
At 0256 pt had 7.47 second pause and by 0317 pt had converted into sinus rhythm. No further afib or pauses noted after that. Pt remains in sinus at this time. Dr Parks made aware of pt's pauses during the night.
[2023-11-02 07:39] VITALS: BP 113/76
[2023-11-02] MEDS: LOW STRENGTH ASPIRIN 81 MG PO (08:15)
[2023-11-02] MEDS: LASIX 40 MG IV ×2 (08:16→15:53)
[2023-11-02] MEDS: PLAVIX 75 MG PO (08:16)
[2023-11-02] MEDS: ROXICODONE 5 MG PO (08:23)
--- NOTE | 2023-11-02 09:56 | PTCARENOTE ---
Assumed care of pt from night RN. Pt received awake and alert, sitting up in bed. VSS, CM shows NSR 50's, POX95% on RA. Medicated with 5 mg Roxicodone as per NOV for 8/10 pain in right chest. Will monitor closely for pauses.
[2023-11-02 10:57] VITALS: BP 106/71
--- NOTE | 2023-11-02 12:27 | W.PN.CD ---
Today's Communication / Plan
-
No BB
NPO after MN in case we chose to proceed with cardiac pacing
Echo, Troponin and EKG in AM for his atypical pleuritic CP that started after second cath
Continue IV diuresis
Hold off on systemic anticoagulation for now but once romy issues resolved anticipate initiating
High risk complicated OR
Impression / Plan
-
-
His OR has been complicated by:
- Heart failure
- PAF
- Sinus node dysfunction
- Post OR chest pain
Post OR chest pain, etiology uncertain, doubt acute ischemic in etiology, perhaps from heart failure or pericarditis
- Components are pericardial sounding
- Echo tomorrow
- No typical findings of pericarditis on ekg
Elevated LVEDP
- Suspect acute diastolic dysfunction from acute OR
- Anticipate echo just prior to discharge or sooner if clinical cours warrants to look for MR or other causes of elevated LVEDP
- Aggressive IV diuresis
AFib, brief but many episodes last night. No AFib since about 0300 hrs 11/02/2023
- May be reversible
- Will not yet commit to OAT but likely once bradys resolved will likely offer retirement OAT...
Bradycardia
- He had frequent severe pauses at termination of AFib last night 3-7 second pauses
- No long pauses since about 0300 11/02/2023
- junctional or ectopic atrial bradycardia stil present
- 3.6 sec pause at termination of AFib
- May be reversible in setting of recent IMI
- For now STOP BB
- Monitor
ACS/NonSTMI
- S/p RCA PCI
- S/p LCx and OM PCI
Smoker, smoking cessation
Lipids
- Goal LDL less than 55 => Statin
I updated his by phone at the patient's request. He dialed her number and had me speak to her from his cell phone.
Subjective:
Dyspnea a bit improved. atypical chest pain may be a bit better
Physical Exam
Vital Signs/Labs
Vital Signs
Temp Pulse Resp BP Pulse Ox
98.1 F 63 20 106/71 95
11/02/23 10:59 11/02/23 10:59 11/02/23 10:59 11/02/23 10:57 11/02/23 08:38
11/01/23 11/02/23 11/03/23
06:59 06:59 06:59
Actual Weight 99.1 kg
11/02/23 01:49
11/02/23 01:49
APTT 72.9 Sec (23.4-35.0) H 10/31/23 09:05
Triglycerides 223 mg/dl (10-149) H 10/30/23 02:15
LDL Cholesterol, Calc 90 mg/dl 10/30/23 02:15
VLDL Cholesterol, Calc 44 mg/dl (0-30) H 10/30/23 02:15
HDL Cholesterol 32 mg/dl 10/30/23 02:15
LAB Results
10/30/23 10/31/23 10/31/23
17:06 02:04 09:05
Troponin I 2.390 H* 3.060 H* 2.880 H*
10/31/23 11/01/23 11/02/23
18:00 17:11 01:49
Troponin I Cancelled 3.670 H* 3.060 H*
Physical Exam
Constitutional: No acute distress
EENT: Anicteric
Cardiovascular: Rhythm & rate is regular and Pedal edema is absent
Respiratory: Respiratory effort normal, Wheeze Absent, Crackles Present (at bases) and Rhonchi Present
GI: Soft, Distention absent and Flat
Neuro/Psych: AO x 3
Data Reviewed
-
Date of Service: November 02, 2023
[2023-11-02 15:45] VITALS: BP 144/72
[2023-11-02] MEDS: TYLENOL 650 MG PO (15:52)
[2023-11-02] MEDS: LIPITOR 80 MG PO (17:25)
--- NOTE | 2023-11-02 20:00 | PTCARENOTE ---
PT AAOx4 in bed w/ complaints of pain. ambulatory in room and to bathroom indipendently . VSS on HR bradycardia. GI and WNL, Plan for ECHO and possible pacer 11/03. see worklist for detailed assessment
[2023-11-02] MEDS: ROXICODONE 10 MG PO (21:22)
[2023-11-02 21:25] VITALS: BP 121/56
[2023-11-03] VITALS: BP 127/79
--- NOTE | 2023-11-03 | PTCARENOTE ---
no change from previous assessment
--- NOTE | 2023-11-03 04:00 | PTCARENOTE ---
no change from previous assessment
[2023-11-03 04:28] VITALS: BP 138/98
[2023-11-03 05:15] LABS: Blood Urea Nitrogen 37 mg/dl (9-20); Calcium 9.4 mg/dl (8.4-10.2); Carbon Dioxide 31 mmol/L (22-30); Chloride 95 mmol/L (98-107); Estimated Creatinine Clearance 78 ml/min; Glucose 106 mg/dl (70-99); Potassium 3.6 mmol/L (3.5-5.1); Sodium 135 mmol/L (135-145); eGFR > 60.00
[2023-11-03 06:00] VITALS: BMI 32.2
[2023-11-03 07:32] VITALS: BP 110/64
[2023-11-03] MEDS: FLUSH (NSS) 1 FLUSH IV ×2 (08:02→08:04)
[2023-11-03] MEDS: LASIX 40 MG IV (08:02)
[2023-11-03] MEDS: LOW STRENGTH ASPIRIN 81 MG PO (08:02)
[2023-11-03] MEDS: PLAVIX 75 MG PO (08:02)
--- NOTE | 2023-11-03 08:28 | W.PN.CD ---
Today's Communication / Plan
-
ECHO
Ambulate
Possible discharge later today
Impression / Plan
-
-
His GA has been complicated by:
- Heart failure
- PAF
- Sinus node dysfunction
- Post GA chest pain
Post GA chest pain, etiology uncertain, doubt acute ischemic in etiology- I reviewed angiograms 10-30, 10-31. Both show excellent angiographic result
-Suspect sxs are due to mild pericardial inflammation post GA (on 10-29)
- Echo this AM
- No typical findings of pericarditis on ekg
AFib, brief but many episodes last night. No AFib since about 0300 hrs 11/02/2023
- May be reversible
- I will defer to EPS on OAT recommendation - certainly could make case that the AF is related to pericarditis post GA and my not require continuous churn buttermaker OAT
Bradycardia
- He had frequent severe pauses at termination of AFib last night 3-7 second pauses
- No long pauses since about 0300 11/02/2023
- junctional or ectopic atrial bradycardia stil present
- 3.6 sec pause at termination of AFib
- May be reversible in setting of recent IMI
-
ACS/NonSTMI
- S/p RCA PCI
- S/p LCx and OM PCI
Smoker, smoking cessation
Lipids
- Goal LDL less than 55 => Statin
DISPO: I want him to ambulate in halls this AM with plan for discharge this afternoon. Dr Parks to weigh in on rhythm issues. ECHO this AM
Subjective:
Atypical CP improved.
Physical Exam
Vital Signs/Labs
Vital Signs
Temp Pulse Resp BP Pulse Ox
98.8 F 64 20 110/64 93
11/03/23 07:30 11/03/23 08:00 11/03/23 07:30 11/03/23 07:32 11/03/23 07:32
11/02/23 11/03/23 11/04/23
06:59 06:59 06:59
Actual Weight 218 lb 7.649 oz 217 lb 13.067 oz
11/02/23 01:49
11/03/23 04:41
APTT 72.9 Sec (23.4-35.0) H 10/31/23 09:05
Triglycerides 223 mg/dl (10-149) H 10/30/23 02:15
LDL Cholesterol, Calc 90 mg/dl 10/30/23 02:15
VLDL Cholesterol, Calc 44 mg/dl (0-30) H 10/30/23 02:15
HDL Cholesterol 32 mg/dl 10/30/23 02:15
LAB Results
10/31/23 10/31/23 11/01/23
09:05 18:00 17:11
Troponin I 2.880 H* Cancelled 3.670 H*
11/02/23 11/03/23 11/03/23
01:49 04:41 06:27
Troponin I 3.060 H* Cancelled 1.870 H*
Physical Exam
Constitutional: Comfortable
Cardiovascular: Rhythm & rate is regular and Murmur/rub/gallop absent
Respiratory: Respiratory effort normal, Lungs clear to auscul. and Wheeze Absent
GI: Soft and Non tender
Neuro/Psych: AO x 3 and Motor deficits absent
Data Reviewed
-
Date of Service: November 03, 2023
--- NOTE | 2023-11-03 09:30 | CM ---
Reviewed chart. Met with Mr. Staples to review discharge plans. He states he is feeling okay and maybe able to go home soon. Prior to admission he resides with his spouse in a one story home with six steps to enter. Prior to admission he was
independent with ambulation and adls. He does not have any DME in the home. He has a prescription plan with [employer] and uses [facility]. Medical work-up in progress. The discharge plan is to return home with his spouse when medically stable.
--- NOTE | 2023-11-03 09:58 | W.PN.UPDATE ---
Update Note
Progress Note Update
No AFib or bradycardia since about 0300 hrs 11/02/2023
Given our concern for pericarditis the risk of adding oral anticoagulation seem to outweigh the benefit in my opinion
In one month I would pursue a 14 d monitor
Avoid beta blockers until results of monitor are available.
--- NOTE | 2023-11-03 10:00 | PTCARENOTE ---
The patient states that his chest pain is 'almost gone'. He also states that he does have some discomfort when he takes deep breaths. Sinus romy is noted on the monitor with HR in the 50s. However when he ambulates, is in NSR with HRs in the 70s.
--- NOTE | 2023-11-03 10:32 | W.DS.TRANS ---
DC Summary - Crank Hand
-
Discharge Instructions:
Discharge Diagnosis/Procedures NSTEMI
Angioplasty with stent to RCA (10/30/23)
Angioplasty with stent to left circumflex artery
x2 (10/31/23)
Bradycardia
HFpEF
Paroxysmal atrial fibrillation
Diet Low Cholesterol,2 Gram Sodium
Activity No strenuous activity
Additional Activity See attached instructions.
Driving Restrictions No driving for 24 hours
Bathing Restrictions None
Others Tests An outpatient monitor will be ordered by the
cardiology office. This will be arranged at your
follow up visit.
Other Services Cardiac Rehab
Specialty Instructions Weigh Daily
Instructions:
Stand-Alone Forms: DC Instructions- Cath/EP Lab
Changes to Home Medications: Yes
Discharge Medications:
DC Medications w/original date entered in [facility]
acetaminophen 325 mg tablet 650 mg PO Q4HPRN PRN mild pain #30 tabs 10/31/23
aspirin 81 mg chewable tablet (Children's Aspirin) 81 mg PO DAILY #90 tabs 10/31/23
atorvastatin 80 mg tablet 80 mg PO QPM #90 tabs 10/31/23
clopidogrel 75 mg tablet 75 mg PO DAILY #90 tabs 10/31/23
furosemide 20 mg tablet 20 mg PO DAILY #30 tabs 11/03/23
Home Medication Changes
All medications are new.
OTC supplements discontinued.
Pending Results: No
Total time spent discharging patient (in min): 34
== END 2023-11-03 12:42 | disposition home or self-care (01) | DRG 321 ==
LOC: IVU 20:39
PROVIDERS: Internal Medicine Cardiovascular Disease; Nurse Practitioner Adult Health; ADMITTING PHYSICIAN Internal Medicine Cardiovascular Disease; EMERGENCY PHYSICIAN Emergency Medicine; FAMILY PHYSICIAN Family Medicine
PROC: 4A023N7 Measurement of Cardiac Sampling and Pressure, Left Heart, Percutaneous Approach (ICD-10-PCS; 2023-10-30)
PROC: B2151ZZ Fluoroscopy of Left Heart using Low Osmolar Contrast (ICD-10-PCS; 2023-10-30)
PROC: 027034Z Dilation of Coronary Artery, One Artery with Drug-eluting Intraluminal Device, Percutaneous Approach (ICD-10-PCS; 2023-10-30)
PROC: B2111ZZ Fluoroscopy of Multiple Coronary Arteries using Low Osmolar Contrast (ICD-10-PCS; 2023-10-30)
PROC: 027135Z Dilation of Coronary Artery, Two Arteries with Two Drug-eluting Intraluminal Devices, Percutaneous Approach (ICD-10-PCS; 2023-10-31)
DX: I21.4 Non-ST elevation (NSTEMI) myocardial infarction (principal); I50.31 Acute diastolic (congestive) heart failure; I31.9 Disease of pericardium, unspecified; I49.5 Sick sinus syndrome; I48.0 Paroxysmal atrial fibrillation; I25.110 Atherosclerotic heart disease of native coronary artery with unstable angina pectoris; F17.210 Nicotine dependence, cigarettes, uncomplicated; E78.5 Hyperlipidemia, unspecified; M19.90 Unspecified osteoarthritis, unspecified site; R05.3 Chronic cough; Z82.49 Family history of ischemic heart disease and other diseases of the circulatory system
CPT/HCPCS: 93308; 71045; 80048; 80053; 80061; 83036; 84484; 85025; 85027; 85347; 85730; 93005; 93306; 93321; 93325; 93458; 96365; 96366; 96367; 99291; 99406; C1725; C1769; C1874; C1894; C9600; C9601; Q9967

== ENCOUNTER 2023-11-18 15:26 | Outpatient (RCR) | payer MEDICARE, OTHER, SELFPAY | END 2023-11-18 23:59 | disposition home or self-care (01) | LOC: CRHB 15:26 | PROVIDERS: ATTENDING PHYSICIAN Internal Medicine Cardiovascular Disease | DX: Z95.5 Presence of coronary angioplasty implant and graft (principal); I25.10 Atherosclerotic heart disease of native coronary artery without angina pectoris; I21.4 Non-ST elevation (NSTEMI) myocardial infarction | CPT/HCPCS: G0422; G0423 ==

== ENCOUNTER 2023-11-19 12:32 | Emergency (ER) | payer MEDICARE, OTHER, SELFPAY ==
[2023-11-19 12:43] VITALS: BP 144/100
[2023-11-19 13:18] LABS: % Basophils 1.3 % (0-2); % Eosinophils 3.8 % (0-6); % Immature Granulocytes 0.6 % (0-0.5); % Lymphocytes 20.7 % (20.5-51.1); % Monocytes 7.8 % (1.7-9.3); % Neutrophils 65.8 % (42.2-75.2); Absolute Basophils 0.1 10^3/uL (0-0.2); Absolute Eosinophils 0.3 10^3/uL (0-0.7); Absolute Immature Granulocytes 0.1 10^3/uL (0-0.05); Absolute Lymphocytes 1.9 10^3/uL (1.2-3.4); Absolute Monocytes 0.7 10^3/uL (0.1-0.6); Absolute Neutrophils 5.9 10^3/uL (1.4-6.5); Hematocrit 41.7 % (39.0-52.0); Hemoglobin 14.5 g/dL (13.0-18.0); Mean Corp Hgb Conc. 34.8 g/dL (33.0-37.0); Mean Corpuscular Hgb 29.3 pg (27.0-31.0); Mean Corpuscular Volume 84.2 fL (80.0-94.0); Mean Platelet Volume 10.8 fL (7.4-10.4); Nucleated Red Blood Cells % 0 % (-); Platelet Count 329 10^3/uL (130-400); Red Blood Cell Count 4.95 10^6/uL (4.70-6.10); Red Cell Dist. Width 12.9 % (11.5-14.5)
[2023-11-19 14:05] LABS: TSH Reflex To Free T4 4.54 uIU/ml (0.47-4.68)
[2023-11-19 14:33] LABS: ALT (SGPT) 34 U/L (0-50); AST (SGOT) 26 U/L (17-59); Albumin 4.1 g/dl (3.5-5.0); Alkaline Phosphatase 95 U/L (38-126); Blood Urea Nitrogen 22 mg/dl (9-20); Calcium 9.5 mg/dl (8.4-10.2); Carbon Dioxide 20 mmol/L (22-30); Chloride 106 mmol/L (98-107); Glucose 112 mg/dl (70-99); Potassium 4.3 mmol/L (3.5-5.1); Sodium 139 mmol/L (135-145); Total Bilirubin 0.5 mg/dl (0.2-1.3); Total Protein 6.8 g/dl (6.3-8.2); eGFR > 60.00
--- NOTE | 2023-11-19 14:37 | ED.GENMED ---
History of Present Illness
General
Chief Complaint: Heart Rate Problem
Time Seen by Provider: 11/19/23 14:36
Travel History
Have you had any contact with someone who has COVID-19?: No
Do you have any symptoms of coronavirus? Fever > 100 degrees, chills, cough, shortness of breath, sore throat, loss of taste or smell, muscle aches, or headache?: No
History of Present Illness
History of Present Illness:
HPI: The patient presents due to concerns with high heart rate�at home this morning was in the 140s. Last week he had a similar more severe episode that lasted for about 10 minutes. Currently overall feels improved with no significant palpitations
at this time. He never had any chest pain or shortness of breath. He did have coronary stenting a few weeks ago.
EXAM:
GENERAL: Well appearing in no distress
HEENT: Moist oral mucosa
CARDIOVASCULAR: No murmurs, borderline tachycardic heart rate with irregular rhythm, No chest wall tenderness
PULMONARY: No respiratory distress, breath sounds are clear and equal
ABDOMEN: Soft with no peritoneal signs, no tenderness
NEUROLOGIC: Excellent strength all extremities, no coordination deficits
PSYCHIATRIC: Appropriate mental status, normal insight and judgement
EXTREMITIES: Nontender, no edema, moves all extremities equally
SKIN: No rash, no lesions
TIME OF INITIAL ENCOUNTER: 2:40 PM
NUMBER AND COMPLEXITY OF PROBLEMS ADDRESSED AT THE ENCOUNTER
� Chronic conditions affecting care: History of atrial fibrillation after last PCI, CAD, NM
� Acute Exacerbation and/or Progression of Chronic Illness: This is a recurring problem since PCI
� Differential Diagnosis includes: Recurrence of A-fib/flutter, electrolyte normality, thyroid disease
AMOUNT AND/OR COMPLEXITY OF DATA TO BE REVIEWED AND ANALYZED
� I performed an independent evaluation of and my interpretation is:
EKG: A flutter with rate of 98�this is new in comparison to 11/03/2023
CT:
X-rays:
Laboratory Studies: CBC normal, bicarb 20, BUN 22 with GFR greater than 60, TSH normal
Other:
� Review of other/old records: I extensively reviewed the records from last hospitalization
� Clinical information was obtained by an independent historian: None needed
� Prescriptions/Medications Considered but not given:
� Further testing considered but not performed:
RISK OF COMPLICATIONS AND/OR MORBIDITY OR MORTALITY OF PATIENT MANAGEMENT
� Social determinants of health affecting care: Lives at home
� Discussion with other providers: Communicated with Dr. Parks who recommends metoprolol succinate 25 mg daily, Eliquis, and baby aspirin
� Escalation of care including admission/observation vs risk of discharge considered: Discussed risks of bleeding but also benefits of being on Eliquis to help prevent CVA with A-fib/flutter. The patient's rate has primarily
been in the 80s to 90s after I initially saw the patient.
Past History
Past History
ED Past Medical History: Other (Pancreatitis)
ED Past Surgical History: Cholecystectomy
Social History
Tobacco: Smoker
Alcohol: None
Drug: None
Personal:
Living: with family
Employment: Employed
Family History
Family History: Other (Noncontributory)
Phy Exam
Physical Exam
Physical Exam:
See HPI
Course
Orders/Labs/Results
Orders:
Orders
11/19/23 12:45
Electrocardiogram (*1) Urgent
Reason for Study: Atrial Fibrillation
11/19/23 12:46
EKG- Treatment ONCE
11/19/23 12:59
Complete Blood Count/With Diff Urgent
Comprehensive Metabolic Panel Urgent
TSH Reflex To Free T4 Urgent
11/19/23 14:46
Metoprolol [Lopressor] 2.5 mg IV NOW STA
11/19/23 14:48
Electrocardiogram (*1) Urgent
Reason for Study: Palpitations
EKG- Treatment ONCE
11/19/23 15:12
Apixaban [Eliquis] 5 mg PO NOW STA
Metoprolol Xl [Toprol Xl] 25 mg PO NOW STA
Abnormal Lab Results
11/19/23
12:59
MPV 10.8 H fL
(7.4-10.4)
Abs Immat Gran (auto) 0.1 H 10^3/uL
(0-0.05)
Absolute Monos (auto) 0.7 H 10^3/uL
(0.1-0.6)
Immature Gran % 0.6 H %
(0-0.5)
Carbon Dioxide 20 L mmol/L
(22-30)
BUN 22 H mg/dl
(9-20)
Glucose 112 H mg/dl
(70-99)
11/19/23 12:59
11/19/23 12:59
Vital Signs
Initial and Last Documented VS:
Initial Vital Signs
Temp Pulse Resp BP Pulse Ox
97.8 F 138 18 144/100 98
11/19/23 12:43 11/19/23 12:43 11/19/23 12:43 11/19/23 12:43 11/19/23 12:43
Last Documented Vital Signs
Temp Pulse Resp BP Pulse Ox
97.8 F 138 18 144/100 98
11/19/23 12:43 11/19/23 12:43 11/19/23 12:43 11/19/23 12:43 11/19/23 12:43
*Critical Care Note
Total Time (30-74mins, 75-104mins- exclusive of procedures): Not Applicable
ED Attending Note
-
Portions of this chart may have been created with voice recognition software.� Occasional wrong word or��sound alike� substitutions may have occurred due to the inherent limitations of voice recognition software.
Discharge Plan
Departure
Patient Disposition: Home (Routine Discharge)
Date of Disposition: 11/19/23
Time of Disposition: 15:36
Patient with high blood pressure during this ER visit?: Yes
Discharge Problem:
Atrial fibrillation/flutter
Instructions: Atrial Fibrillation (DC), Chest Pain CBC Follow Up
Prescriptions:
New
Eliquis 5 mg tablet
5 mg PO BID Qty: 60 0RF
metoprolol succinate 25 mg tablet extended release 24 hr
25 mg PO DAILY Qty: 30 0RF
No Action
atorvastatin 80 mg Tablet
80 mg PO QPM Qty: 90 3RF
acetaminophen 325 mg Tablet
650 mg PO Q4HPRN PRN (Reason: mild pain) Qty: 30 0RF
clopidogrel 75 mg Tablet
75 mg PO DAILY Qty: 90 3RF
aspirin [Children's Aspirin] 81 mg Tablet,Chewable
81 mg PO DAILY Qty: 90 0RF
furosemide 20 mg Tablet
20 mg PO DAILY Qty: 30 0RF
Rx Instructions:
Take one tablet daily for one week then only as needed for weight gain (3 pounds) and edema
Referrals:
Sotero Eng, DO [Family Provider] -
Eligio Parks MD [Active] - Follow up in 2-3 days
Activity Restrictions/Additional Instructions:
Next dose of Eliquis and metoprolol succinate in the morning. I notified Dr. Parks. He does want you to continue the clopidogrel (Plavix), a baby aspirin, and add the Eliquis. The Eliquis helps to prevent stroke in the setting of atrial
fibrillation/flutter. The Plavix and the aspirin helped to prevent complications from the coronary stent that was recently placed. Return here if worse or other concerns.
Interventions
Interventions:
*Risk Screen - Suicide Last Done: 11/19/23 12:45
*General Assessment Last Done: 11/19/23 12:45
*Neglect/Abuse Screening Last Done: 11/19/23 12:45
[2023-11-19] MEDS: ELIQUIS 5 MG PO (15:31)
[2023-11-19] MEDS: TOPROL XL 25 MG PO (15:32)
[2023-11-19 15:33] VITALS: BP 153/107
[2023-11-19 16:06] VITALS: BP 146/92
== END 2023-11-19 16:07 | disposition home or self-care (01) ==
LOC: EMR 12:32
PROVIDERS: Emergency Medicine; EMERGENCY PHYSICIAN Emergency Medicine; FAMILY PHYSICIAN Family Medicine
DX: I48.91 Unspecified atrial fibrillation (principal); I48.92 Unspecified atrial flutter; R03.0 Elevated blood-pressure reading, without diagnosis of hypertension; F17.200 Nicotine dependence, unspecified, uncomplicated; Z95.5 Presence of coronary angioplasty implant and graft
CPT/HCPCS: 99284; 80053; 84443; 85025; 93005

== ENCOUNTER 2023-12-11 10:54 | Day surgery (SDC) | payer MEDICARE, OTHER, SELFPAY ==
[2023-12-11] VITALS (7 sets, daily range): BP systolic 143–169; BP diastolic 79–97; BMI 32.5
[2023-12-11] MEDS: VANCOCIN 300 ML IV (14:56)
[2023-12-11] MEDS: VANCOCIN 300 MG IV (14:56)
--- NOTE | 2023-12-11 17:08 | ITS.CL.PACE ---
Center Receptionist - Pacemaker Implant
Pacemaker Implant
Procedure Report:
Dual Chamber Pacemaker Placement:
Mr. Staples is a very pleasant 63 yrs old gentleman who presented with bradycardia with syncope and sick sinus syndrome and a long pause on Holter and is recommended for PPM placement. Pateint is a left handed person and would like it placed on the
right side.
Indications: Sick sinus syndrome
Date of the Procedure: 12/11/2023
Pre-Operative Diagnosis: Sick sinus syndrome
Post-Operative Diagnosis: Sick sinus syndrome
Procedure Performed: DUAL CHAMBER PACEMAKER IMPLANTATION
Performing Physician:
Flaco Salas MD
Anesthesia:
See anesthesia records
Pre-operative antibiotics:
Ancef 2gm IV
Detailed Description of the Procedure:
The patient was identified using hospital identification and informed consent obtained for the procedure. The risks were explained including, but not limited to: Bleeding, infection, arrhythmia, stroke, vascular/cardiac/lung puncture, surgery,
pacemaker dependency/device malfunction. All questions were answered.
The patient was brought to the electrophysiology laboratory in stable condition in fasting state. Continuous electrocardiographic and hemodynamic monitoring was initiated.
The initial rhythm was normal sinus rhythm.
A surgical pause and time out was performed immediately prior to the procedure with review of her medical history, recent labs, allergies and medications with site of procedure identified and consent noted in the chart. Antibiotics pre operatively
given. All team members concurred.
The procedure site was meticulously prepared with surgical scrub and allowed to dry with no pooling. Sterile draping was applied to cover the procedure site. The image intensifier was draped with sterile bag and positioned over the patient.
The right infraclavicular region was prepped and draped in the usual sterile fashion. Local anesthesia was administered subcutaneously using 1% lidocaine / Bupivacaine. The right cephalic vein cutdown was performed with an incision at the
delto-pectoral groove, and vascular sheaths were introduced for lead access. These were advanced into the right ventricle and the right atrium.
The right ventricular lead was secured in position with an active fixation technique at the apical septal location.
The right atrial lead was placed with active fixation to the right atrial appendage. The atrial lead was dislodged and was repositioned with excellent results and stress test was done that showed stable lead position.
There was excellent sensing, pacing, and impedance from the leads, with no diaphragmatic stimulation at 10 V output.�Bovie cautery, antibiotics, and fluoroscopy were used.
The sheaths were withdrawn, and the thresholds remained acceptable. The leads were secured in position at the venous entry site with 0-silk. A pocket was fashioned contiguous to the incision. The electrode terminals were connected to the pulse
generator, which was placed into the pocket. The wound was irrigated thoroughly with antibiotic solution.
The wound was closed in 3 layers using 2-0 VLoc then two layers of 4-0 V loc sutures to the dermis. Steri-strips were applied externally and covered with Aquacel bandage.
Procedure End:
The procedure was tolerated well.
Estimated Blood loss:
5 cc
Specimens Removed:
No cultures and no specimens were obtained. No intraoperative pathology was identified.
Fluoro time:
2.9 min / 18.5mGy
Urine output:
None
Packs / Drains/ Tubes:
None
Instrument / Sponge Count Correct:
Yes
Complications of the Procedure:
None
Condition of Patient at Time of Transfer:
Hemodynamically stable with no neurological or vascular compromise.
Device information:�
Generator: [employer]; Model: [id number]; Serial # [id number]�
Atrial Lead:
[employer]; Model: 5076-45; Serial # [id number]
Measured data in the right atrium was sensing of 1.9 mV, impedance of 722 ohms and threshold of 1.2 V at 0.4ms.
RV Lead:
[employer]; Model: 5076-52; Serial # [id number]
Measured data in the RV lead was sensing of 8.3 mV, impedance of 684 ohms and threshold of 0.5 V at 0.4ms�
Antoni parameter settings were AAIR < = > DDDR 60-130 bpm. �
����������� Mode Switch: On
����������� Paced AV interval: 180ms
����������� Sensed AV interval: 150 ms.
����������� Rate Adaptive A-V Interval: Off
Output parameters:
����������������������� Amplitude (V)������������� Pulse Width (ms)������� Sensitivity (mV)
����������� RA: ���� 3.5 ����������������� 0.4������������������ 0.3
����������� RV:����� 3.5������������������ 0.4������������������ 0.9
Summary:
Successful implantation of MRI compatible dual chamber pacemaker
Results/Recommendations:
-Please follow up CXR�
1. Please provide patient with adequate pain control�
Instructions to be given to patient:�
- Please follow up with [facility] at [address] [place] [address] ([phone]) to get your wound checked within 14 days of your discharge.
- Do not wet incision site until after it is evaluated at cardiology clinic. No soaking or bath until then. Showers or Sponge baths are OK.�Dab dry the area after a shower.
- Do not lift right elbow above shoulder, particularly with sudden jerking movements, for 1 month�
- Do not lift anything weighing more than 10 pounds with the right arm for 1 month�
- If you notice any fevers, shortness of breath, lightheadedness, chest pain, or worsening swelling in the wound site, please contact the arrhythmia clinic, contact your qa specialist, or present to the hospital for evaluation.�
Flaco Salas MD
Electrophysiology
--- NOTE | 2023-12-11 18:00 | PTCARENOTE ---
Pt received post pacer awake, alert and oriented. Denies any pain or discomfort. Right chest aqucell intact with no hematoma.
[2023-12-11] MEDS: LIPITOR 80 MG PO (18:03)
[2023-12-11] MEDS: TYLENOL 650 MG PO (20:42)
[2023-12-11] MEDS: ELIQUIS 5 MG PO (20:42)
--- NOTE | 2023-12-11 20:57 | PTCARENOTE ---
Assumed care of patient at change of shift. Tele monitor shows SR and occasional Apaced. HR in the 60's. Right anterior chest dressing intact, with arm in the immobilizer. Education provided on activity restrictions. Patient a standby assist to WC,
and brought down for Xray. Patient c/o incisional discomfort, rating pain a /10. 650mg Tylenol administered at 20:42. Patient aware of POC, call bar[place]ona in reach.
[2023-12-12 05:07] VITALS: BP 145/89
[2023-12-12 05:47] LABS: Hematocrit 42.9 % (39.0-52.0); Hemoglobin 14.7 g/dL (13.0-18.0); Mean Corp Hgb Conc. 34.3 g/dL (33.0-37.0); Mean Corpuscular Hgb 29.4 pg (27.0-31.0); Mean Corpuscular Volume 85.8 fL (80.0-94.0); Mean Platelet Volume 10.4 fL (7.4-10.4); Platelet Count 228 10^3/uL (130-400); Red Cell Dist. Width 13.2 % (11.5-14.5); White Blood Cell Count 9.6 10^3/uL (4.8-10.8)
[2023-12-12 06:31] LABS: Blood Urea Nitrogen 16 mg/dl (9-20); Calcium 9.2 mg/dl (8.4-10.2); Carbon Dioxide 24 mmol/L (22-30); Chloride 103 mmol/L (98-107); Estimated Creatinine Clearance 107 ml/min; Glucose 88 mg/dl (70-99); Magnesium 1.8 mg/dl (1.6-2.3); Potassium 4.5 mmol/L (3.5-5.1); Sodium 136 mmol/L (135-145); eGFR > 60.00
[2023-12-12 07:34] VITALS: BP 134/85
[2023-12-12] MEDS: TOPROL XL 25 MG PO (08:48)
[2023-12-12] MEDS: PLAVIX 75 MG PO (08:48)
[2023-12-12] MEDS: ELIQUIS 5 MG PO (08:48)
--- NOTE | 2023-12-12 09:03 | W.PN.CARDCBS ---
Addendum entered and electronically signed by Stepan Russell MD 12/12/23 10:49:
63 yo male with SSS, symptomatic bradycardia admitted following PPM implant. No cardiac complaints. Exam with RRR, no murmurs, no edema. Tele: A paced 60. He will be discharged with office follow up. Continue current medical regimen.
Original Note:
Today's Communication / Plan
-
stable for d/c home
Impression / Plan
-
PCP: Sotero Eng DO
CDY: Rashid Fontanez MD
Mr. Staples is a very pleasant 63 yrs old gentleman who presented with bradycardia with syncope and sick sinus syndrome and a long pause on Holter and is recommended for PPM placement. Pateint is a left handed person and would like it placed on the
right side.
Impression/Plan:
Symptomatic bradycardia/SSS - post DC PPM [employer] 12/11/23, site stable, tele SR with appropriate Apacing, CXR no PTX
continue metoprolol, inc check 1 week. Activity restrictions reviewed
CAD/KS prior PCI RCA 10/2023 - continue Plavix, atorvastatin, metoprolol
Paroxysmal Afib - currently SR, continue Eliquis
Hyperlipidemia - continue atorvastatin 80mg
chronic HFpEF
Smoker - reinforced cessation
Stable for d/c home
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
Subjective
Date of Service: December 12, 2023
no cp, sob, mild inc pain
Objective
Labs:
12/12/23 05:19
12/12/23 05:19
Labs
Hgb 14.7 g/dL (13.0-18.0) 12/12/23 05:19
Hct 42.9 % (39.0-52.0) 12/12/23 05:19
Plt Count 228 10^3/uL (130-400) 12/12/23 05:19
Sodium 136 mmol/L (135-145) 12/12/23 05:19
Potassium 4.5 mmol/L (3.5-5.1) 12/12/23 05:19
BUN 16 mg/dl (9-20) 12/12/23 05:19
Creatinine 0.8 mg/dL (0.7-1.3) 12/12/23 05:19
Glucose 88 mg/dl (70-99) 12/12/23 05:19
Vital Signs and I&O:
Vital Signs
Temp Pulse Resp BP Pulse Ox
97.9 F 60 14 145/89 95
12/12/23 07:34 12/12/23 07:34 12/12/23 07:34 12/12/23 05:07 12/12/23 07:34
Vital Signs
Temp Pulse Resp BP Pulse Ox
97.9 F 60 14 145/89 95
12/12/23 07:34 12/12/23 07:34 12/12/23 07:34 12/12/23 05:07 12/12/23 07:34
Intake & Output
12/10/23 12/11/23 12/12/23 12/13/23
06:59 06:59 06:59 06:59
Intake Total 500 / 500
Output Total 300 / 300
Balance 200 / 200
Physical Exam
Physical Exam
NAD, AOx3
S1, S2, RRR
CTAB, non labored, no wheeze
SNTND Bsx4
R CW Aquacel dressing c/d/i no HT
--- NOTE | 2023-12-12 11:27 | CM ---
CM following for DC planning needs.
Pt. resides in a private, 1 story home w/ 6 BRIE w/ spouse.
Functionally, patient is indep. with ADLs, mobility without the use of any assisted device.
Met w/ patient in the hallway; patient was ambulating ad nic and ready for DC.
Plan: HOME, no needs.
--- NOTE | 2023-12-12 11:48 | W.DS.TRANS ---
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
-
Discharge Instructions:
Sleep Apnea Risk Intermediate
Discharge Diagnosis/Procedures Pacemaker implantation
Diet Low Cholesterol
Driving Restrictions No driving for 1 week
Bathing Restrictions OK to Shower
Instructions:
Stand-Alone Forms: DC Inst - Implanted Device
Changes to Home Medications: No
Discharge Medications:
DC Medications w/original date entered in [employer]
acetaminophen 325 mg tablet 650 mg (2 x 325 mg) PO Q4HPRN PRN mild pain #30 tabs 10/31/23
atorvastatin 80 mg tablet 80 mg PO QPM #90 tabs 10/31/23
clopidogrel 75 mg tablet 75 mg PO DAILY #90 tabs 10/31/23
apixaban 5 mg tablet (Eliquis) 5 mg PO BID #60 tabs 11/19/23
metoprolol succinate 25 mg tablet,extended release 24 hr 25 mg PO DAILY #30 tabs 11/19/23
ascorbic acid (vitamin C) 1,000 mg capsule,extended release 1 cap PO DAILY 12/11/23
furosemide 20 mg tablet 20 mg PO DAILYPRN PRN weight gain 12/11/23
Home Medication Changes
Pending Results: No
== END 2023-12-12 11:05 | disposition home or self-care (01) ==
LOC: CATH 10:54
PROVIDERS: Nurse Practitioner Adult Health; ATTENDING PHYSICIAN Internal Medicine Cardiovascular Disease; FAMILY PHYSICIAN Family Medicine; OTHER PHYSICIAN Nurse Practitioner
DX: I49.5 Sick sinus syndrome (principal); I48.0 Paroxysmal atrial fibrillation; R55 Syncope and collapse; E78.5 Hyperlipidemia, unspecified; I11.0 Hypertensive heart disease with heart failure; I50.32 Chronic diastolic (congestive) heart failure; Z79.02 Long term (current) use of antithrombotics/antiplatelets; I25.10 Atherosclerotic heart disease of native coronary artery without angina pectoris; Z95.5 Presence of coronary angioplasty implant and graft; F17.210 Nicotine dependence, cigarettes, uncomplicated
CPT/HCPCS: 33208; 71045; 80048; 83735; 85027; 93005; C1785; C1892; C1898